=== PATIENT | female | born 1985 | race Caucasian/White ===

== ENCOUNTER 2017-12-13 03:39 | Emergency (ER) | payer BC ==
[~2017-12-13] VITALS: Ht 167.6 cm; Wt 63.5 kg
--- NOTE | 2017-12-13 03:43 | NUR ---
PT TO ER BED 7. BIBRA C/O VB X 6 HOURS. PT HAD VAGINAL DELIVERY X 8 DAYS AGO. 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 VSS/RESP EVEN UNLABORED/NAD NOTED/SKIN WARM AND DRY/DENIES N-V-D/ AFEBRILE/AOX4. MD AT BEDSIDE FOR EVAL.
--- NOTE | 2017-12-13 03:57 | NUR ---
Dr Sequeira paged per Dr Dubon.
--- NOTE | 2017-12-13 04:22 | NUR ---
20G IV TO L AC X 1 ATTEMPT USING ASEPTIC TECH, BLOOD CULT X 2 AND BLOOD HANDED OVER TO THE LAB AT BEDSIDE. IV FLUSHES EASILY WITH NS, NO S/S OF INFILTRATION NOTED.
[2017-12-13 04:41] LABS: BASOPHILS % (AUTO) 0.3 % (0.0-2.0); EOSINOPHILS % (AUTO) 0.2 % (0.0-6.0); HEMATOCRIT 23 % (33-45); HEMOGLOBIN 7.7 g/dL (11.5-14.8); LYMPHOCYTES # (AUTO) 1.1 /CMM (0.8-4.8); LYMPHOCYTES % (AUTO) 11.2 % (20.0-44.0); MEAN CORPUSCULAR HGB CONC 34 g/dl (31.0-36.0); MEAN CORPUSCULAR VOLUME 86 fL (82-100); MONOCYTES # (AUTO) 0.5 /CMM (0.1-1.30); MONOCYTES % (AUTO) 5.3 % (2.0-12.0); NEUTROPHILS # (AUTO) 7.9 /CMM (1.8-8.9); PLATELET COUNT (AUTO) 340 /CMM (150-450); RDW COEFFICIENT OF VARIATION 14.4 (11.5-15.0); RED BLOOD CELL COUNT(AUTO) 2.64 MIL/uL (4.0-5.2); WHITE BLOOD COUNT (AUTO) 9.5 K/uL (4.3-11.0)
[2017-12-13 04:57] LABS: INR 0.95 (0.87-1.13)
--- NOTE | 2017-12-13 05:00 | NUR ---
ASSISTED MD FOR EXAM AT BEDSIDE.
[2017-12-13 05:05] LABS: CALCIUM, SERUM 8.3 mg/dL (8.5-10.1); CREATININE 0.9 mg/dL (0.6-1.3); POTASSIUM 3.9 mmol/L (3.5-5.1)
--- NOTE | 2017-12-13 05:22 | NUR ---
TALKED TO MELODIE FROM THE [facility] TRANSFER LINE, SHE TOLD ME SHE WILL CALL MD RODRIGUEZ TO CONFIRM PT IS ACCEPTING AND WILL CALL US BACK WITH BED #, PT FACE SHEET WILL BE FAXED TO MELODIE AT THIS TIME
--- NOTE | 2017-12-13 05:35 | NUR ---
CALLED [facility] FOR AN ALS TRANSPORT ETA 1.5-2 HOURS TALKED TO KRISTYN TRIP # [id number]
--- NOTE | 2017-12-13 05:49 | NUR ---
PT ACCEPTED BY MD RODRIGUEZ PT GOING TO ROOM 8971 AT [facility], NUMBER FOR REPORT IS [phone]
--- NOTE | 2017-12-13 06:45 | NUR ---
PT RESTING QUIETLY, AROUSES EASILY TO VOICE. VSS. CONTINUING TO PROVIDE SAFETY AND COMFORT MEASURES FOR PATIENT.
[2017-12-13 07:15] VITALS: BP 119/62
--- NOTE | 2017-12-13 07:21 | NUR ---
PATIENT ON BED, ASLEEP. VSS
--- NOTE | 2017-12-13 07:49 | NUR ---
CALL FROM [facility] REPORT TO BE CALLED AT [phone], INFORMED OF [place] ETA AT [phone]
--- NOTE | 2017-12-13 07:56 | NUR ---
REPORT GIVEN TO [facility] FOR TRANSPORT OF PATIENT TO [facility]. S.
--- NOTE | 2017-12-13 08:02 | NUR ---
ENDORSED TO KENZIE ARTHUR [facility].
== END 2017-12-13 08:04 | disposition short-term general hospital (02) ==
LOC: ER 03:41
DX: O72.2 Delayed and secondary postpartum hemorrhage (principal); Z88.6 Allergy status to analgesic agent
CPT/HCPCS: 36415; 76856-TC; 80048-TC; 84702-TC; 85025-TC; 85730-TC; 86850-TC; A4606; A6402; Z7610